=== PATIENT | male | born 1985 | race Caucasian/White ===

== ENCOUNTER 2018-02-10 19:32 | Emergency (ER) | payer OTHER ==
--- NOTE | 2018-02-10 20:07 | ED ---
Wound/Laceration HPI - General Chief Complaint: Wound/Laceration Stated Complaint: chest lac Time Seen by Provider: 02/10/18 19:43 Source: patient Mode of arrival: ambulatory Limitations: no limitations - History of Present Illness Initial Comments: 32-year-old male no past medical history presents today for chief complaint of laceration to left chest. Patient stated that around 7:15 PM he was bending over to grab his sunglasses that follow-up follow-up when he scratched against a 1 inch screw causing a laceration to the raise of his chest. Pt admits to pain to palpation of the laceration. Patient denies any deep penetration, chest pain shortness of breath. Patient immediately apply pressure to the area was brought to emergency department by his girlfriend. Patient does not know last tetanus. Patient denies any recent fever, chills, shortness of breath, chest pain, back pain, abdominal pain, nausea or vomiting, numbness or tingling , dysuria or hematuria, constipation or diarrhea, headaches or visual changes, or any other complaints. - Related Data Home Medications Medication Instructions Recorded Confirmed Dextroamphetamine/Amphetamine 20 mg PO BID PRN 10/18/15 10/18/15 [Adderall] Previous Rx's Medication Instructions Recorded Cephalexin [Keflex] 500 mg PO BID 5 Days #10 capsule 02/10/18 Ibuprofen [Motrin] 800 mg PO Q8H PRN 5 Days #15 tab 02/10/18 Allergies Allergy/AdvReac Type Severity Reaction Status Date / Time No Known Allergies Allergy Verified 02/10/18 19:56 Review of Systems ROS Statement: Those systems with pertinent positive or pertinent negative responses have been documented in the HPI. ROS Other: All systems not noted in ROS Statement are negative. Constitutional: Denies: fever, chills Eyes: Denies: eye pain ENT: Denies: ear pain, throat pain Respiratory: Denies: cough, dyspnea Cardiovascular: Denies: chest pain, palpitations Endocrine: Denies: fatigue Gastrointestinal: Denies: abdominal pain, nausea, vomiting Genitourinary: Denies: urgency, dysuria Musculoskeletal: Denies: back pain Skin: Reports: as per HPI, lesions Neurological: Denies: headache, weakness, numbness, paresthesias Past Medical History Past Medical History: No Reported History History of Any Multi-Drug Resistant Organisms: None Reported Additional Past Surgical History / Comment(s): facial sx Past Psychological History: No Psychological Hx Reported Smoking Status: Current every day smoker Past Alcohol Use History: Daily, Heavy Past Drug Use History: None Reported General Exam - General Exam Comments Initial Comments: General: The patient is awake and alert, in no distress, and does not appear acutely ill. Eye: Pupils are equal, round and reactive to light, extra-ocular movements are intact. No nystagmus. There is normal conjunctiva bilaterally. No signs of icterus. Ears, nose, mouth and throat: There are moist mucous membranes and no oral lesions. Neck: The neck is supple, there is no tenderness or JVD. Cardiovascular: There is a regular rate and rhythm. No murmur, rub or gallop is appreciated. Respiratory: Lungs are clear to auscultation, respirations are non-labored, breath sounds are equal. No wheezes, stridor, rales, or rhonchi. Musculoskeletal: Normal ROM, no tenderness. Strength 5/5. Sensation intact. Pulses equal bilaterally 2+. Neurological: A&O x 3. CN II-XII intact, There are no obvious motor or sensory deficits. Coordination appears grossly intact. Speech is normal. Skin: Skin is warm and dry and no rashes. 6cm laceration, superficial of the right breast, just superior to nipple. No exposure of underlying muscle. No evidence of FB. Psychiatric: Cooperative, appropriate mood & affect, normal judgment. Limitations: no limitations Course Vital Signs 02/10/18 19:54 Temperature 98.5 F Pulse Rate 77 Respiratory 20 Rate Blood Pressure 122/82 O2 Sat by Pulse 99 Oximetry Procedures - Laceration Laceration #1 Consent Obtained: verbal consent Time Out Performed: Yes Indication: laceration Site: chest Size (cm): 6 Description: linear Depth: simple, single layer Anesthetic Used: lidocaine 1% Anesthesia Technique: local infiltration Amount (mls): 10 Pre-repair: wound explored, irrigated extensively, deep structures intact Type of Sutures: nylon Size of Sutures: 4-0 Number of Sutures: 13 Technique: simple, interrupted Patient Tolerated Procedure: well, no complications Medical Decision Making - Medical Decision Making Laceration was irrigated, explored and approximated using 13 4.0 nylon suture. Pt tolerated procedure well. Bacitracin applied. Covered with bandage. CXR ordered however pt stated he did not want it as he did not have chest pain, dyspea, or shortness of breath. Pt told to f/u with PCP in 1-2 days. Watch for signs of infection as discussed. Pt started on 500mg keflex BID x5 days for infection ppx. pt denied allergies. Pt told to return for removal in 7 days at the emergency department. Pt agreed with plan and d/c in stable condition. Case discussed in detail with Dr. Aponte prior to d/c. Disposition Clinical Impression: Laceration Narrative: right chest just superior to nipple Disposition: HOME SELF-CARE Condition: Good Instructions: Care For Your Stitches (ED), Laceration (ED) Additional Instructions: Please use as discussed. Please follow-up with family doctor in the next 2 days of symptoms have not improved. Pleas return in 7 days for suture removal. Please return to emergency room if the symptoms increase or worsen or for any other concerns. Prescriptions: Cephalexin [Keflex] 500 mg PO BID 5 Days #10 capsule Ibuprofen [Motrin] 800 mg PO Q8H PRN 5 Days #15 tab PRN Reason: Pain Is patient prescribed a controlled substance at d/c from ED?: No Referrals: Avi Cantor MD [Primary Care Provider] - 1-2 days Time of Disposition: 21:15
[2018-02-10] MEDS ORDERED: LIDOCAINE 1% INJ 10MG/ML (20 ML MDV) SQ ONE (20:12)
[2018-02-10] MEDS ORDERED: DIPH,PERTUS(ACELL)TETVAC-LF 0.5 ML VIAL IM ONE (20:12)
[2018-02-10] MEDS ORDERED: IBUPROFEN 800 MG TAB PO STA (20:13)
[2018-02-10 21:35] VITALS: BP 123/62; PULSE 70; RESP 16; TEMP 98
== END 2018-02-10 21:30 | disposition home or self-care (01) ==
LOC: EC 19:32
DX: S21.011A Laceration without foreign body of right breast, initial encounter (principal); F17.200 Nicotine dependence, unspecified, uncomplicated; Z23 Encounter for immunization; W26.8XXA Contact with other sharp object(s), not elsewhere classified, initial encounter; Y92.89 Other specified places as the place of occurrence of the external cause; Y93.89 Activity, other specified
CPT/HCPCS: 90715; 99282; 12002; 90471; J2001

== ENCOUNTER 2019-08-06 13:51 | Emergency (ER) | payer OTHER ==
[2019-08-06 14:04] VITALS: BP 145/90; PULSE 86; RESP 18; TEMP 98.1
[2019-08-06] MEDS ORDERED: FLUORESCEIN STRIPS 1 MG STRIP RIGHT EYE ONE (14:25)
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
== END 2019-08-06 15:42 | disposition home or self-care (01) ==
LOC: EC 13:51
DX: S00.11XA Contusion of right eyelid and periocular area, initial encounter (principal); H11.31 Conjunctival hemorrhage, right eye; S00.81XA Abrasion of other part of head, initial encounter; R40.2412 Glasgow coma scale score 13-15, at arrival to emergency department; F17.200 Nicotine dependence, unspecified, uncomplicated; Y04.0XXA Assault by unarmed brawl or fight, initial encounter; Y92.89 Other specified places as the place of occurrence of the external cause
CPT/HCPCS: 70450; 70486; 72125; 99284

== ENCOUNTER 2020-07-26 06:04 | Day surgery (SDC) | payer OTHER ==
[2020-07-20 15:25] VITALS: BMI 28.6
[~2020-07-26 06:04] MED LIST: ACETAMINOPHEN TAB 500 MG TAB PO PRN; DEXAMETHASONE SOD PHOSPHATE 4 MG/ML 1 ML VIAL IV ONE; HEPARIN SODIUM,PORCINE 5,000 UNIT/ML 1 ML VIAL SQ PRN; LIDOCAINE 1% (10MG/ML) FOR IV START INTRADERMA PRN; MIDAZOLAM 2 MG/2 ML VIAL IV PRN; ONDANSETRON 4 MG/2 ML VIAL IVP ONE
[2020-07-26] MEDS ORDERED: ONDANSETRON 4 MG/2 ML VIAL ONE (06:18)
[2020-07-26 06:53] VITALS: RESP 16
[2020-07-26] MEDS: LACTATED RINGERS 1,000 ML IV SCH ×3 (06:53→09:53)
[2020-07-26] MEDS ORDERED: fentaNYL (PF) 50 MCG/ML 2 ML AMP IVP PRN (07:00)
[2020-07-26 07:03] LABS: Basophils % (A) 1 %; Eosinophils # (A) 0.2 k/uL (0-0.7); Eosinophils % (A) 2 %; HCT 41.8 % (39.0-53.0); HGB 14.4 gm/dL (13.0-17.5); Lymphocytes # (A) 2.6 k/uL (1.0-4.8); Lymphocytes % (A) 38 %; MCH 29.8 pg (25.0-35.0); MCHC 34.5 g/dL (31.0-37.0); MCV 86.3 fL (80.0-100.0); Mean Platelet Volume 6.4; Monocytes # (A) 0.5 k/uL (0-1.0); Monocytes % (A) 7 %; Neutrophils # (A) 3.5 k/uL (1.3-7.7); Neutrophils % (A) 51 %; Platelet Count 232 k/uL (150-450); RBC 4.84 m/uL (4.30-5.90); RDW 12.6 % (11.5-15.5); WBC 6.8 k/uL (3.8-10.6)
[2020-07-26] MEDS ORDERED: DEXAMETHASONE SOD PHOSPHATE 4 MG/ML 1 ML VIAL ONE (07:59)
[2020-07-26] MEDS ORDERED: KETAMINE 10 MG/ML 20 ML VIAL ONE (07:59)
[2020-07-26] MEDS ORDERED: SUCCINYLCHOLINE CHLORIDE VIAL 200 MG/10 ML VIAL IV ONE (07:59)
[2020-07-26] MEDS ORDERED: fentaNYL (PF) 50 MCG/ML 2 ML AMP ONE (07:59)
[2020-07-26] MEDS ORDERED: ROPIVACAINE 5 MG/ML 30 ML VIAL ONE (07:59)
[2020-07-26] MEDS ORDERED: PROPOFOL 10 MG/ML 20 ML VIAL IV ONE (07:59)
[2020-07-26] MEDS ORDERED: LIDOCAINE 1% INJ 10MG/ML (20 ML MDV) ONE (07:59)
[2020-07-26] MEDS ORDERED: ROCURONIUM 10 MG/ML (10 ML VIAL) IV ONE (07:59)
[2020-07-26] MEDS ORDERED: HYDROmorphone (PF) 1 MG/ML ONE (07:59)
[2020-07-26] MEDS ORDERED: GLYCOPYRROLATE 0.2 MG/ML 2 ML VIAL ONE (07:59)
[2020-07-26] MEDS ORDERED: NEOSTIGMINE 1 MG/ML 10 ML VIAL ONE (07:59)
[2020-07-26] MEDS ORDERED: BUPIVACAINE (PF) 0.25% 30 ML VIAL SQ ONE (08:24)
[2020-07-26 09:17] VITALS: TEMP 97.7
[2020-07-26] MEDS: HYDROmorphone 0.5 MG/0.5 ML SYRINGE IVP PRN ×2 (09:22→09:35)
[2020-07-26] MEDS ORDERED: KETOROLAC 15 MG/ML 1 ML VIAL IVP ONE (09:24)
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
--- NOTE | 2020-07-26 09:39 | P.OP ---
Date of Procedure: 07/26/20 Preoperative Diagnosis: Incarcerated umbilical hernia Postoperative Diagnosis: Incarcerated umbilical hernia Procedure(s) Performed: Laparoscopic robotic Incarcerated umbilical hernia Partial omentectomy Anesthesia: KATTY Surgeon: Len Bentley Pathology: other (Omentum) Description of Procedure: The patient was placed on the operating table in the supine position. He received general anesthesia. His abdomen was prepped and draped usual fashion. Using a 5 mm optical trocar under direct visualization the peritoneal cavity was entered in the left upper quadrant. The abdomen was then insufflated. The laparoscope was placed back into the perineal cavity. Next a 8 mm robotic trocar was placed in the left lower quadrant and a 12 mm robotic trocar was placed in the left lateral position. The original 5 mm trocar was exchanged for a 8 mm robotic trocar. The patient's placed in the left side up position. And the patient was undocked the robot. The umbilical hernia was visualized. Using hook cautery the peritoneum over the umbilical hernia was excised. The incarcerated omentum was dissected free and sent to pathology. The fascial opening was repaired using 0V LOC suture. Next a piece of 11 cm round ventral light ST mesh was placed into the. Cavity and secured with 2 OV lock suture. The patient was undocked the robot. The needles were retrieved. The fascia of the 12 mm trocar site was closed with 0 Ethibond suture. Skin was closed interrupted 3-0 Monocryl suture. Dermabond dressings was applied. Patient top procedure well and was sent to recovery room stable condition.
[2020-07-26 10:55] VITALS: BP 137/89; PULSE 84
--- NOTE | 2020-07-26 13:52 | P.ANPRN ---
Procedure Note - Anesthesia - Nerve Block Performed Bilateral Rectus Abdominis Single Time Out Performed: Yes Date of Procedure: 07/26/20 Procedure Start Time: 07:38 Procedure Stop Time: 07:45 Location of Patient: PreOp Indication: Acute Post-Operative Pain, Requested by Surgeon Sedation Type: Sedate with meaningful contact maintained Preparation: Sterile Prep Position: Supine Needle Types: Pajunk Needle Gauge: 21 Ultrasound used to visualize needle placement: Yes Ultrasound used to observe medication spread: Yes Blood Aspirated: No Pain Paresthesia on Injection Noted: No Resistance on Injection: Normal Image Stored and Saved: Yes Events: Uneventful and Well Tolerated (ropi .5% 20cc plus dexamethasone 4mg bilaterally)
== END 2020-07-26 11:47 | disposition home or self-care (01) ==
LOC: OR 06:04
PROVIDERS: ATTEND Surgery
DX: K42.0 Umbilical hernia with obstruction, without gangrene (principal); Z98.890 Other specified postprocedural states; Z87.891 Personal history of nicotine dependence
CPT/HCPCS: 49653; 64488; 85025; 88302; C1781; J2250; J0330; J1644; J1100; J2710; J0690; J2405; J2001; J3010; J1170 ×2; J2795; J1885; J2704

== ENCOUNTER → 2021-07-21 | Outpatient (CLI) | payer BC | END | disposition home or self-care (01) | LOC: LABWHC1 16:21 | PROVIDERS: ATTEND Physician Assistant | DX: Z20.2 Contact with and (suspected) exposure to infections with a predominantly sexual mode of transmission (principal) | CPT/HCPCS: 36415; 86694; 86695; 86696; 86780; 87390; 87491; 87591 ==

== ENCOUNTER → 2024-08-03 | Outpatient (CLI) | payer BC ==
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
== END | disposition home or self-care (01) ==
LOC: RADXRMAIN 16:09
PROVIDERS: ATTEND Internal Medicine
DX: M25.511 Pain in right shoulder (principal)